=== PATIENT | male | born 1945 | race Caucasian/White ===

== ENCOUNTER 2020-05-03 13:38 | Outpatient (RCR) | payer MEDICARE | END 2020-05-08 | LOC: M ST 13:38 | PROVIDERS: ATTEND Otolaryngology | DX: C14.0 Malignant neoplasm of pharynx, unspecified (principal); C32.9 Malignant neoplasm of larynx, unspecified; Z01.818 Encounter for other preprocedural examination ==

== ENCOUNTER → 2020-06-08 | Outpatient (RCR) | payer MEDICARE | LOC: M ST 05-11 12:58 | PROVIDERS: ATTEND Otolaryngology | DX: C14.0 Malignant neoplasm of pharynx, unspecified (principal); C32.9 Malignant neoplasm of larynx, unspecified ==

== ENCOUNTER 2020-07-06 13:00 | Outpatient (RCR) | payer MEDICARE | END 2020-07-09 | LOC: M ST 13:00 | PROVIDERS: ATTEND Otolaryngology | DX: C14.0 Malignant neoplasm of pharynx, unspecified (principal); C32.9 Malignant neoplasm of larynx, unspecified; Z90.02 Acquired absence of larynx; Z93.0 Tracheostomy status; R47.89 Other speech disturbances ==